=== PATIENT | female | born 1955 | race Caucasian/White ===

== ENCOUNTER 2016-08-25 19:28 | Emergency (ER) | payer OTHER ==
[~2016-08-25 19:28] MED LIST: ASPIR 8181 M1 PO; ASTAXANTHIN PO; ATENOLOL25 M1 PO; BACITRACIN3.5 GM; CALCIUM 600 +1 EA15 PO; CALCIUM CARBON600 M2 PO; CALCIUM500 M3 PO; CEPHALEXIN500 MG; COCONUT OIL1000 M1 PO; COUMADIN10 MG; COUMADIN5 M2 PO; COUMADIN5 MG; COUMADIN7.5 M1 PO; COUMADIN7.5 MG PO; ENDUR ACIN PO; HYDROCHLOROTHIA25 M1 PO; HYDROCODON-ACE1 EA16 PO; IBUPROFEN200 M2 PO; KRILL OIL 1,001 EAC2 PO; L-ARGININE1000 M1 PO; LISINOPRIL-HCT1 EAC3 PO; LISINOPRIL-HCTZ1 TAB; METHYLPHENIDATE10 M3 PO; METOPROLOL TART25 M1 PO; MULTIPLE VITAMI1 TAB; MULTIVITAMIN1 TAB PO; MULTIVITAMINS1 EAC6 PO; NAMENDA XR28 M1 PO; PROBIOTIC1 EAC6 PO; RED YEAST RICE600 M2 PO; TRAZODONE HCL50 M1 PO; TRIAMCINOLONE AC5 GM; TRIPLE ANTIBI28.4 GM; TYLENOL EXTRA500 M1 PO; TYLENOL500 MG PO; UBIQUINOL PO; VENLAFAXINE HCL75 M5 PO; VITAMIN B-12 PO; VITAMIN C500 M3 PO; VITAMIN D35000 UNI2 PO; VITAMIN D5000 UNI1 PO; VITAMIN K 2 PO; [UNRECOGNIZED DRUG - OTHER]; [UNRECOGNIZED DRUG - OTHER]; [UNRECOGNIZED DRUG - OTHER] PO
== END 2016-08-25 22:22 ==
LOC: EDMED 19:28
DX: I83.892 Varicose veins of left lower extremity with other complications (principal); I87.8 Other specified disorders of veins; Z79.01 Long term (current) use of anticoagulants; Z79.899 Other long term (current) drug therapy
CPT/HCPCS: J2060